=== PATIENT | male | born 1950 | race Caucasian/White ===

== ENCOUNTER → 2018-08-16 | Outpatient (CLI) | payer OTHER ==
[~2018-08-16] MED LIST: ALBIPROI INH; ALBU90OI INH; ALPR.5 PO; AMIT25; AMIT25 PO; AMIT50 PO; ARIP10 PO; ATOR40TA PO; ATOR80 PO; CIPR250 PO; CLON2 PO; CRESTOR 20 MG; CYCL10; CYCL10 PO; DIAZ5 PO; DIPH50; DIPH50 PO; DOC250; DOC250 PO; DOCU100 PO; DULO60; DULO60 PO; ESCI10; ESCI20; FURO40; FURO40 PO; FURO80 PO; GLIP5ER PO; GLYCOLAX; HEARTBURN RELI150 M1 PO; HYDACE10B PO; HYDACE5; HYDMOR2 PO; IPRA.03NI; LEVFLO500 PO; LORA1; LORA1 PO; LORAZEPAM; MECL25; MECL25 PO; METF500; METF500C PO; METH10; MIRT15; OXYACE7.5T PO; OXYC30 PO; OXYC5; PANT40; PHENA200 PO; POTA10T PO; POTA20PAC; POTCHL10ER; POTCHL10ER PO; PROM25 PO; RANI150 PO; RISP3 PO; ROSU10TA; ROSU10TA PO; SULTRIDS PO; TERA1 PO; TIOT18 IH; TIOT18 INH; VALS80; VALS80 PO; VENL37.5ER PO; WARF1 PO; WARF10; WARF10 PO; WARF4; WARF4 PO; WARF5; [UNRECOGNIZED DRUG - OTHER]
== END | disposition home or self-care (01) ==
LOC: LAB EV 11:00
DX: R05 Cough (principal)
CPT/HCPCS: 87070; 87205

== ENCOUNTER 2019-12-15 17:11 | Emergency (ER) | payer OTHER ==
[~2019-12-15] VITALS: Ht 188 cm; Wt 137.0 kg
[~2019-12-15 17:11] MED LIST changes: -ATOR80 PO; +ATORVASTATIN CA40 MG PO; +GLIP10 PO; -GLIP5ER PO; +INSUGL100V PO; +LOSA50 PO; +METF500 PO; +OMEP20ER PO
[2019-12-15 17:38] LABS: BASOPHILS ABSOLUTE AUTO 0.06 K/mm3 (0.00-0.23); BASOPHILS PERCENT AUTO 1 % (0-2); EOSINOPHILS ABSOLUTE AUTO 0.04 K/mm3 (0.00-0.68); EOSINOPHILS PERCENT AUTO 1 % (0-6); Hematocrit 43.8 % (37.0-53.0); Hemoglobin 15.3 g/dL (13.5-17.5); IMMATURE GRAN ABSOLUTE AUTO 0.01 K/mm3 (0.00-0.10); IMMATURE GRAN PERCENT AUTO 0 % (0-1); LYMPHOCYTES ABSOLUTE AUTO 1.02 K/mm3 (0.84-5.20); LYMPHOCYTES PERCENT AUTO 17 % (21-46); MONOCYTES ABSOLUTE AUTO 0.46 K/mm3 (0.16-1.47); MONOCYTES PERCENT AUTO 8 % (4-13); Mean Corpuscular HGB 29.3 pg (26.0-34.0); Mean Corpuscular HGB Conc 34.9 g/dL (31.5-36.5); Mean Corpuscular Volume 84 fL (80-100); Mean Platelet Volume 10.7 fL (9.1-12.4); NEUTROPHILS ABSOLUTE AUTO 4.42 K/mm3 (1.96-9.15); NEUTROPHILS PERCENT AUTO 73 % (41-73); Platelet Count 260 K/mm3 (150-400); RDW Coefficient Variation 12.5 % (11.7-14.2); RDW Standard Deviation 37.9 fL (35.1-46.3); Red Blood Cell Count 5.23 M/mm3 (4.30-5.90); White Blood Cell Count 6.01 K/mm3 (4.00-11.30)
[2019-12-15 17:53] LABS: International Normalized Ratio 2.31; Prothrombin Time Results 23.6 Sec (9.7-11.5)
[2019-12-15 17:56] LABS: Albumin, Blood 3.4 g/dL (3.4-5.0); Albumin/Globulin Ratio 0.8 (0.8-1.8); Bilirubin, Total 0.4 mg/dL (0.1-1.0); Bun/Creatinine Ratio 15.9 (12.0-20.0); Calcium, Blood 8.9 mg/dL (8.5-10.1); Creatinine, Blood 1.51 mg/dL (0.60-1.20); Globulin, Blood 4.2 g/dL (2.2-4.0); Potassium, Blood 4.2 mmol/L (3.5-5.5); Total Protein, Blood 7.6 g/dL (6.4-8.2)
[2019-12-15] MEDS ORDERED: OXYGEN (18:14)
== END 2019-12-15 18:45 | disposition home or self-care (01) ==
LOC: ER 17:11
PROVIDERS: Physician Assistant
DX: K92.1 Melena (principal); E11.40 Type 2 diabetes mellitus with diabetic neuropathy, unspecified; I10 Essential (primary) hypertension; E78.5 Hyperlipidemia, unspecified; F41.9 Anxiety disorder, unspecified; Z87.891 Personal history of nicotine dependence; Z79.01 Long term (current) use of anticoagulants; Z91.09 Other allergy status, other than to drugs and biological substances; Z79.899 Other long term (current) drug therapy; Z79.4 Long term (current) use of insulin
CPT/HCPCS: 36415; 80053; 85025; 85610; 86850; 86900; 86901; 93005; 93010; 99283-25

== ENCOUNTER 2022-02-07 09:08 | Emergency (ER) | payer OTHER ==
[~2022-02-07] VITALS: Ht 188 cm; Wt 132.0 kg
[~2022-02-07 09:08] MED LIST changes: +OXYGEN
[2022-02-07 10:50] LABS: BASOPHILS ABSOLUTE AUTO 0.07 K/mm3 (0.00-0.23); BASOPHILS PERCENT AUTO 1 % (0-2); EOSINOPHILS ABSOLUTE AUTO 0.01 K/mm3 (0.00-0.68); EOSINOPHILS PERCENT AUTO 0 % (0-6); Hematocrit 43.4 % (37.0-53.0); Hemoglobin 15.2 g/dL (13.5-17.5); IMMATURE GRAN ABSOLUTE AUTO 0.04 K/mm3 (0.00-0.10); IMMATURE GRAN PERCENT AUTO 0 % (0-1); LYMPHOCYTES ABSOLUTE AUTO 0.94 K/mm3 (0.84-5.20); LYMPHOCYTES PERCENT AUTO 7 % (21-46); MONOCYTES ABSOLUTE AUTO 1.79 K/mm3 (0.16-1.47); MONOCYTES PERCENT AUTO 13 % (4-13); Mean Corpuscular Volume 83 fL (80-100); Mean Platelet Volume 10.3 fL (9.1-12.4); NEUTROPHILS ABSOLUTE AUTO 11.11 K/mm3 (1.96-9.15); NEUTROPHILS PERCENT AUTO 80 % (41-73); Platelet Count 266 K/mm3 (150-400); RDW Coefficient Variation 12.6 % (11.7-14.2); RDW Standard Deviation 38.2 fL (35.1-46.3); Red Blood Cell Count 5.25 M/mm3 (4.30-5.90); White Blood Cell Count 13.96 K/mm3 (4.00-11.30)
[2022-02-07] MEDS ORDERED: BASAGLAR K100 UNIT/3 SC (10:56)
[2022-02-07] MEDS ORDERED: VENLAFAXINE HC225 MG PO (10:57)
[2022-02-07 10:59] LABS: Bun/Creatinine Ratio 14.8 (12.0-20.0); Calcium, Blood 9.2 mg/dL (8.5-10.1); Creatinine, Blood 1.96 mg/dL (0.60-1.20); Potassium, Blood 3.8 mmol/L (3.5-5.5)
[2022-02-07] MEDS ORDERED: JANTOVEN10 M2 PO (10:59)
[2022-02-07] MEDS ORDERED: TIZANIDINE HCL213 PO (10:59)
[2022-02-07] MEDS ORDERED: ATOR80 PO (10:59)
[2022-02-07] MEDS ORDERED: AMLODIPINE BESY10 MG PO (11:00)
[2022-02-07] MEDS ORDERED: CARVEDILOL12.5 MG PO (11:01)
[2022-02-07] MEDS ORDERED: LOSA50 PO (11:01)
[2022-02-07] MEDS ORDERED: CEPH500 PO (11:12)
== END 2022-02-07 11:49 | disposition home or self-care (01) ==
LOC: ER 09:08
PROVIDERS: Family Medicine
DX: L02.411 Cutaneous abscess of right axilla (principal); L03.111 Cellulitis of right axilla; I12.9 Hypertensive chronic kidney disease with stage 1 through stage 4 chronic kidney disease, or unspecified chronic kidney disease; E11.22 Type 2 diabetes mellitus with diabetic chronic kidney disease; N18.9 Chronic kidney disease, unspecified; E11.40 Type 2 diabetes mellitus with diabetic neuropathy, unspecified; E78.5 Hyperlipidemia, unspecified; J44.9 Chronic obstructive pulmonary disease, unspecified; Z87.891 Personal history of nicotine dependence; Z79.01 Long term (current) use of anticoagulants; Z86.718 Personal history of other venous thrombosis and embolism; Z86.711 Personal history of pulmonary embolism; Z79.899 Other long term (current) drug therapy; Z79.4 Long term (current) use of insulin
CPT/HCPCS: 36415; 76882; 80048; 85025; A9270

== ENCOUNTER → 2024-12-04 | Outpatient (CLI) | payer OTHER ==
[~2024-12-04] MED LIST changes: +AMLODIPINE BESY10 MG PO; +ATOR80 PO; +BASAGLAR K100 UNIT/3 SC; +CARVEDILOL12.5 MG PO; +CEPH500 PO; +JANTOVEN10 M2 PO; +TIZANIDINE HCL213 PO; +VENLAFAXINE HC225 MG PO
[2024-12-04 18:12] LABS: Protein, Urine Quantitative 234.6 mg/dL (0.0-11.9)
[2024-12-04 18:20] LABS: Microalbumin, Urine Quant. 1820.000 mg/L (0.000-20.000)
== END ==
LOC: LAB 13:53 → LAB SHORT 13:53 → LAB FUT 12-02 13:20
PROVIDERS: Internal Medicine Nephrology
DX: N18.30 Chronic kidney disease, stage 3 unspecified (principal); D63.1 Anemia in chronic kidney disease; N25.81 Secondary hyperparathyroidism of renal origin; E55.9 Vitamin D deficiency, unspecified; E29.1 Testicular hypofunction; N40.1 Benign prostatic hyperplasia with lower urinary tract symptoms; R76.9 Abnormal immunological finding in serum, unspecified; R94.5 Abnormal results of liver function studies; R94.6 Abnormal results of thyroid function studies; D51.8 Other vitamin B12 deficiency anemias; D52.8 Other folate deficiency anemias; D50.9 Iron deficiency anemia, unspecified
CPT/HCPCS: 81050; 82043; 82570; 84156